=== PATIENT | female | born 2000 | race Caucasian/White ===

== ENCOUNTER → 2021-11-14 22:15 | Observation (INO) | END | disposition home or self-care (01) | LOC: 1NENULAB | PROVIDERS: ADMIT Registered Nurse; ATTEND Registered Nurse ==

== ENCOUNTER 2021-12-11 03:51 | Inpatient (IN) ==
[2021-12-11] MEDS ORDERED: Ondansetron 4 MG/2 ML VIAL IVP PRN (04:00)
[2021-12-11] MEDS ORDERED: Oxytocin 30 UNIT/503 ML BAG IVC SCH (04:00)
[2021-12-11] MEDS ORDERED: Naloxone 0.4 MG/ML INJ IVP PRN (04:00)
[2021-12-11] MEDS ORDERED: *HR* Nalbuphine 10 MG/ML AMPUL IV PRN (04:00)
[2021-12-11] MEDS ORDERED: Famotidine 20 MG/2 ML VIAL IVP PRN (04:00)
[2021-12-11] MEDS ORDERED: Metoclopramide 10 MG/2 ML VIAL IVP PRN (04:00)
[2021-12-11] MEDS ORDERED: Ringers Solution, Lactated 1,000 ML IVC SCH (04:00)
[2021-12-11] MEDS ORDERED: Azithromycin 500 MG in 0.9 % Sodium Chloride 250 ML IVPB PRN (04:00)
[2021-12-11 04:49] LABS: Basophils % 0.1 %; Hematocrit 33.5 % (35.3-44.9); Immature Granulocytes % 0.3 % (0-4); Lymphocytes # 3.2 K/mcL (0.6-4.6); Lymphocytes % 21.8 %; Mean Corpuscular HGB Conc 32.8 g/dL (31.6-35.5); Mean Corpuscular Hemoglobin 27.7 pg (28.0-33.3); Mean Corpuscular Volume 84.4 fL (83.0-100.0); Monocytes % 6.6 %; Neutrophils # 10.3 K/mcL (1.6-8.9); Platelet Count 286 K/mcL (140-400); Red Blood Count 3.97 M/mcL (3.82-4.97); Red Cell Distribution Width 13.2 % (11.5-14.5); Segmented Neutrophils % 71.2 %; White Blood Count 14.5 K/mcL (4.3-11.1)
[2021-12-11 04:58] LABS: Amphetamine Screen,Urine Negative ng/mL (Cutoff=1000); Barbiturate Screen,Urine Negative ng/mL (Cutoff=200); Benzodiazepines Screen,Urine Negative ng/mL (Cutoff=200); Cannabinoid Screen,Urine Negative ng/mL (Cutoff = 50); Cocaine Screen,Urine Negative ng/mL (Cutoff= 300); Opiate Screen,Urine Negative ng/mL (Cutoff=300); Phencyclidine Screen,Urine Negative ng/mL (Cutoff=25)
[2021-12-11] MEDS: miSOPROStoL 25 MCG TABLET PO PRN ×2 (04:59→09:07)
[2021-12-11] MEDS ORDERED: EPHEDrine 50 MG/ML VIAL IVP PRN (07:02)
[2021-12-11] MEDS ORDERED: Epidural Premix (fent/bupiv) 110 ML EP SCH (07:15)
[2021-12-12] MEDS ORDERED: Ondansetron ODT 4 MG TAB.RAPDIS SL PRN (09:34)
[2021-12-12] MEDS ORDERED: OXYTOCIN/RINGERS LACTATE 10 UNIT/166.6 ML BAG IVC ONE (09:34)
[2021-12-12] MEDS ORDERED: Measles/Mumps/Rubella Vacc 0.5 ML VIAL SQ PRN (09:34)
[2021-12-12] MEDS ORDERED: Rho Immune Globulin 1,500 UNIT SYRINGE IM PRN (09:34)
[2021-12-12] MEDS ORDERED: Oxytocin 30 UNIT/503 ML BAG IVC SCH (09:34)
[2021-12-12] MEDS ORDERED: Prenatal Vit/FA 1 EACH TABLET PO SCH (09:34)
[2021-12-12] MEDS: Ibuprofen 600 MG TABLET PO SCH ×2 (11:56→20:38)
[2021-12-12] MEDS: Acetaminophen 325 MG TABLET PO SCH ×2 (11:56→20:37)
[2021-12-12] MEDS: Benzocaine/Menthol 56 GM AEROSOL SPRAY TP PRN (11:56)
[2021-12-12] MEDS: Lanolin 7 G OINT...G. TP PRN (11:56)
[2021-12-13 03:22] VITALS: O2SAT 98
[2021-12-13 04:35] LABS: Basophils % 0.3 %; Hemoglobin 8.9 g/dL (11.5-15.4); Immature Granulocytes % 0.4 % (0-4); Lymphocytes # 3.7 K/mcL (0.6-4.6); Lymphocytes % 31.4 %; Mean Corpuscular HGB Conc 31.8 g/dL (31.6-35.5); Mean Corpuscular Hemoglobin 27.2 pg (28.0-33.3); Mean Corpuscular Volume 85.6 fL (83.0-100.0); Mean Platelet Volume 11.2 fL (9.4-12.4); Monocytes # 0.7 K/mcL (0.0-1.3); Monocytes % 6.2 %; Neutrophils # 7.3 K/mcL (1.6-8.9); Platelet Count 208 K/mcL (140-400); Red Blood Count 3.27 M/mcL (3.82-4.97); Red Cell Distribution Width 13.4 % (11.5-14.5); Segmented Neutrophils % 61.7 %; White Blood Count 11.9 K/mcL (4.3-11.1)
[2021-12-13 07:08] VITALS: BP 125/78; PULSE 83; TEMP 98.6
[2021-12-13] MEDS: Benzocaine/Menthol 56 GM AEROSOL SPRAY TP PRN (08:41)
[2021-12-13] MEDS: Lanolin 7 G OINT...G. TP PRN (08:41)
[2021-12-13] MEDS: Acetaminophen 325 MG TABLET PO SCH (08:42)
[2021-12-13] MEDS: Ibuprofen 600 MG TABLET PO SCH (08:42)
== END 2021-12-13 15:31 | disposition home or self-care (01) | DRG 807 ==
LOC: 1NENULAB 03:51 → 1NENUOBS 12-12 09:56
PROVIDERS: ADMIT Obstetrics & Gynecology; ATTEND Obstetrics & Gynecology